=== PATIENT | female | born 1970 | race Two or more races ===

== ENCOUNTER → 2018-12-29 | Emergency (ER) | payer OTHER ==
[~2018-12-29] VITALS: Ht 165.1 cm; Wt 74.4 kg
[~2018-12-29] MED LIST: SYNTHROID200 MCG; ZITHROMAX200 MG
== END | disposition home or self-care (01) ==
LOC: ER 19:25
DX: J06.9 Acute upper respiratory infection, unspecified (principal)

== ENCOUNTER 2024-11-23 22:27 | Inpatient (IN) | payer OTHER ==
[~2024-11-23] VITALS: Ht 167.6 cm; Wt 70.8 kg
[2024-11-23] MEDS ORDERED: TOPROL XL25 M1 (22:39)
[2024-11-24] MEDS ORDERED: KETOROLAC TROMETHAMINE 30 MG VIAL IV STA (01:33)
[2024-11-24] MEDS ORDERED: PIPERACILLIN/TAZOBACTAM SODIUM 3.375 GM in DEXTROSE 5 % IN WATER 100 ML IV SCH (01:34)
[2024-11-24] MEDS ORDERED: KETOROLAC TROMETHAMINE 30 MG VIAL ONE ×4 (01:35→22:33)
[2024-11-24] MEDS ORDERED: PIPERACILLIN/TAZOBACTAM SODIUM 3.375 GM VIAL IV ONE ×3 (01:35→22:33)
[2024-11-24 02:24] LABS: HEMATOCRIT 38.3 % (36.0-45.00); MEAN CELL VOLUME 91.1 fL (80.00-100.00); PLATELET COUNT 260 K/uL (150-450); RED CELL DISTRIBUTION WIDTH 13.3 % (11.5-14.5)
[2024-11-24 02:35] LABS: PH,URINE 5.5 (5.0-8.0); URINE APPEARANCE Clear; URINE BILIRRUBIN Negative (NEGATIVE); URINE BLOOD Negative; URINE COLOR Yellow; URINE GLUCOSE Negative (NEGATIVE); URINE KETONE Negative (NEGATIVE); URINE LEUKOCYTE Trace; URINE NITRATE Negative; URINE PROTEIN Negative (NEGATIVE); URINE UROBILINOGEN 0.2 E.U./dl
[2024-11-24 02:38] LABS: URINE BACTERIA 4.8 uL (0.0-1933); URINE EPITHELIAL CELLS 17.2 uL (0.0-38.8); URINE RBC 2.5 uL (0.0-20.8); URINE WBC 9.3 uL (0.0-23.2)
[2024-11-24 02:41] LABS: INR 0.99; PARTIAL THROMBOPLASTIN TIME 29.1 SECONDS (22.0-34.0); PROTHROMBIN TIME 10.8 SECONDS (9.0-11.5)
[2024-11-24 02:46] LABS: ALBUMIN 4.2 gm/dL (3.4-5.0); BILIRUBIN TOTAL 0.3 mg/dL (0.3-1.2); CALCIUM 9.7 mg/dL (8.5-10.1); CREATININE SERUM 0.94 mg/dL (0.55-1.02); GFR 61.6; GLOBULINA 3.8 G/DL (2.4-3.5); POTASSIUM 3.87 mEq/L (3.5-5.1)
[2024-11-24 02:46] LABS: URINE CAST 0.14 uL (0.0-1.40)
[2024-11-24] MEDS ORDERED: KETOROLAC TROMETHAMINE 30 MG VIAL IM ONE (11:15)
[2024-11-24] MEDS ORDERED: OFLOXACIN 0.3% 5ML DROPS (OTIC) OT SCH (17:37)
[2024-11-24] MEDS ORDERED: FAMOTIDINE/PF 20 MG in 0.9 % SODIUM CHLORIDE 8 ML IV PUSH SCH (17:38)
[2024-11-24] MEDS ORDERED: 0.9 % SODIUM CHLORIDE 1,000 ML IV SCH (17:45)
[2024-11-24] MEDS ORDERED: KETOROLAC TROMETHAMINE 15 MG VIAL IV PRN (17:45)
[2024-11-24] MEDS ORDERED: KETOROLAC TROMETHAMINE 30 MG VIAL IU ONE (17:45)
[2024-11-24] MEDS ORDERED: KETOROLAC TROMETHAMINE 30 MG VIAL IV PRN (18:30)
[2024-11-24] MEDS ORDERED: FAMOTIDINE/PF 20 MG/2 ML VIAL ONE (22:33)
[2024-11-24 23:38] LABS: INR 1.03; PARTIAL THROMBOPLASTIN TIME 28.5 SECONDS (22.0-34.0); PROTHROMBIN TIME 11.2 SECONDS (9.0-11.5)
[2024-11-25] VITALS: BP 127/80; O2SAT 98
[2024-11-25] MEDS ORDERED: LEVOTHYROXINE SODIUM 150 MCG TABLET PO SCH (06:00)
[2024-11-25 07:54] VITALS: BP 114/78
[2024-11-25] MEDS ORDERED: ATORVASTATIN CALCIUM 40 MG TABLET PO SCH (09:00)
[2024-11-25] MEDS ORDERED: ENOXAPARIN SODIUM 40 MG/0.4 ML SYRINGE SUBCUTANEO SCH (09:00)
[2024-11-25] MEDS ORDERED: METOPROLOL SUCCINATE 25 MG TAB.SR.24H PO SCH (09:00)
[2024-11-25] MEDS ORDERED: LINEZOLID IN DEXTROSE 5% 600 MG/300 ML PIGGYBAG IV STA (13:36)
[2024-11-25] MEDS ORDERED: CLONAZEPAM 1 MG TABLET PO ONE (14:15)
[2024-11-25] MEDS ORDERED: LACTOBACILLUS ACIDOPHILUS 1 CAP CAP PO SCH (17:00)
[2024-11-25 18:37] VITALS: BP 122/80; O2SAT 97
[2024-11-25] MEDS ORDERED: LINEZOLID IN DEXTROSE 5% 600 MG/300 ML PIGGYBAG IV SCH (21:00)
[2024-11-26 02:09] VITALS: BP 97/65; O2SAT 98
[2024-11-26] MEDS ORDERED: CHLORHEXIDINE GLUCONATE 240 ML BOTTLE TOP SCH (09:00)
[2024-11-26 09:51] VITALS: BP 123/84; O2SAT 95
[2024-11-26 16:50] VITALS: BP 118/78
[2024-11-27 03:25] VITALS: BP 132/83; O2SAT 97
[2024-11-27 09:04] VITALS: BP 119/81; O2SAT 95
[2024-11-27 17:19] VITALS: BP 121/68
[2024-11-28 03:35] VITALS: BP 120/80; O2SAT 97
[2024-11-28] MEDS ORDERED: SODIUM CHLORIDE 0.45 % 1,000 ML IV SCH (08:00)
[2024-11-28 08:25] VITALS: BP 150/91
[2024-11-28] MEDS ORDERED: CIPROFLOXACIN IN 5 % DEXTROSE 200 ML IV SCH ×2 (09:00→17:00)
[2024-11-28 12:58] LABS: HEMATOCRIT 35.5 % (36.0-45.00); HEMOGLOBIN 12.3 g/dL (12.0-15.00); MEAN CELL VOLUME 90.2 fL (80.00-100.00); MEAN CORPUSCULAR HEMOGLOBIN 31.3 pg (27.00-32.0); MEAN CORPUSCULAR HGB CONC 34.7 g/dl (32.0-36.0); PLATELET COUNT 237 K/uL (150-450); RED BLOOD COUNT 3.93 M/uL (4.00-6.00); RED CELL DISTRIBUTION WIDTH 13.1 % (11.5-14.5)
[2024-11-28 13:26] LABS: ALBUMIN 3.4 gm/dL (3.4-5.0); BILIRUBIN TOTAL 0.29 mg/dL (0.3-1.2); CALCIUM 8.9 mg/dL (8.5-10.1); CREATININE SERUM 0.76 mg/dL (0.55-1.02); GFR 78.72; GLOBULINA 3.1 G/DL (2.4-3.5); MAGNESIUM 1.9 mg/dL (1.8-2.4); PHOSPHOROUS 3.3 mg/dL (2.5-4.9); POTASSIUM 3.97 mEq/L (3.5-5.1); TOTAL PROTEIN 6.5 gm/dL (6.4-8.2)
[2024-11-28 18:10] VITALS: BP 123/66; O2SAT 99
[2024-11-28] MEDS ORDERED: FAMOtidine 40 MG TABLET PO SCH (21:00)
[2024-11-29] VITALS: BP 125/71; O2SAT 96
[2024-11-29] MEDS ORDERED: LIPITOR40 M1 PO (08:27)
[2024-11-29] MEDS ORDERED: TOPROL XL25 M1 PO (08:34)
[2024-11-29] MEDS ORDERED: OFLOXACIN5 M1 OT (08:34)
[2024-11-29] MEDS ORDERED: FAMOTIDINE40 MG PO (08:34)
[2024-11-29] MEDS ORDERED: LEVOTHYROXINE150 MCG PO (08:35)
[2024-11-29] MEDS ORDERED: INTESTINEX680 M1 PO (08:35)
[2024-11-29] MEDS ORDERED: CHLORHEXIDINE118 M1 TOP (08:35)
[2024-11-29 09:06] VITALS: BP 119/69; O2SAT 98
[2024-11-29] MEDS ORDERED: CIPRO500 MG PO (11:23)
== END 2024-11-29 10:36 | disposition home or self-care (01) | DRG 156 ==
LOC: ER 22:27 → SEC-K 11-24 17:46 → MEDI 11-24 17:46
PROVIDERS: General Practice; ADMIT Internal Medicine; ATTEND Internal Medicine
PROC: BW28ZZZ Computerized Tomography (CT Scan) of Head (ICD-10-PCS; principal; 2024-11-25)
DX: H60.392 Other infective otitis externa, left ear (principal); H60.12 Cellulitis of left external ear; H60.02 Abscess of left external ear; H61.032 Chondritis of left external ear; I10 Essential (primary) hypertension; E03.9 Hypothyroidism, unspecified; E78.5 Hyperlipidemia, unspecified; B96.5 Pseudomonas (aeruginosa) (mallei) (pseudomallei) as the cause of diseases classified elsewhere